=== PATIENT | female | born 1980 ===

== ENCOUNTER 2021-10-13 12:10 | Outpatient (CLI) | payer OTHER | END 2021-10-13 12:17 | disposition home or self-care (01) | LOC: MAMO-SONO 12:10 | PROVIDERS: ATTEND Student in an Organized Health Care Education/Training Program | DX: N64.4 Mastodynia (principal); R10.2 Pelvic and perineal pain; N93.9 Abnormal uterine and vaginal bleeding, unspecified ==

== ENCOUNTER 2021-11-24 11:06 | Outpatient (CLI) | payer OTHER | END 2021-11-24 12:52 | disposition home or self-care (01) | LOC: RAD 11:06 | PROVIDERS: ATTEND Legal Medicine | DX: R05.1 Acute cough (principal) ==

== ENCOUNTER 2023-01-02 13:52 | Outpatient (CLI) | payer OTHER | END 2023-01-02 14:05 | disposition home or self-care (01) | LOC: MAMO-SONO 13:52 | PROVIDERS: ATTEND Legal Medicine | DX: N64.4 Mastodynia (principal); Z12.31 Encounter for screening mammogram for malignant neoplasm of breast ==

== ENCOUNTER 2024-02-26 10:00 | Outpatient (CLI) | payer OTHER | END 2024-02-26 10:09 | disposition home or self-care (01) | LOC: MAMO-SONO 10:00 | PROVIDERS: ATTEND Obstetrics & Gynecology | DX: N60.11 Diffuse cystic mastopathy of right breast (principal); N60.12 Diffuse cystic mastopathy of left breast ==